=== PATIENT | male | born 1975 | race Caucasian/White ===

== ENCOUNTER 2018-03-27 13:42 | Emergency (ER) | payer SELFPAY ==
[2018-03-27] MEDS ORDERED: KETOROLAC 30 MG/ML INJ ONE (14:28)
--- NOTE | 2018-03-27 14:29 | RAD REPORT ---
EXAM DESCRIPTION: RAD - Forearm Right - 03/27/2018 2:17 pm CLINICAL HISTORY: PAIN COMPARISON: No comparisons FINDINGS: Soft tissue swelling is seen about the wrist. No fracture or dislocation present. Small chicas rdware plate is present proximal fourth metacarpal. No radiopaque foreign body evident.
--- NOTE | 2018-03-27 14:49 | EDPHYS ---
Physician Documentation [facility] Name: Panda Morelos Age: 43 yrs Sex: Male : 1975 Arrival Date: 03/27/2018 Time: 13:44 Bed 30 Private MD: None, None ED Physician Raphael George HPI: 03/27 14:07 This 43 yrs old Male presents to ER via Ambulatory with complaints of snw Shoulder Pain, Nausea. 14:07 The patient or guardian complains of pain, that is acute. right shoulder and right snw wrist. Context: The problem was sustained construction site, resulted from a direct blow, by a heavy object, repetitive motion, The patient reports no decreased range of motion. The patient reports no obvious deformity. Onset: The symptoms/episode began/occurred suddenly, yesterday. Modifying factors: the symptoms are alleviated by remaining still. Associated signs and symptoms: The patient has no apparent associated signs or symptoms. Severity of symptoms: At their worst the symptoms were moderate. Treatment prior to arrival includes: splinting the affected extremity. The patient has not experienced similar symptoms in the past. The patient has not recently seen a physician. Historical: - Allergies: 13:49 No Known Allergies; aj1 - Home Meds: 13:49 None [Active]; aj1 - PMHx: 13:49 None; aj1 - PSHx: 13:49 wrist surgery; aj1 - Immunization history:: Flu vaccine is up to date. - Social history:: Smoking status: Patient uses tobacco products, smokes one pack cigarettes per day. chewing tobacco. - Ebola Screening: : Patient denies travel to an Ebola-affected area in the 21 days before illness onset. ROS: 14:06 Constitutional: Negative for fever, chills, and weight loss, Eyes: Negative for injury, snw pain, redness, and discharge, ENT: Negative for injury, pain, and discharge, Neck: Negative for injury, pain, and swelling, Cardiovascular: Negative for chest pain, palpitations, and edema, Respiratory: Negative for shortness of breath, cough, wheezing, and pleuritic chest pain, Abdomen/GI: Negative for abdominal pain, nausea, vomiting, diarrhea, and constipation, Back: Negative for injury and pain, : Negative for injury, bleeding, discharge, and swelling, Skin: Negative for injury, rash, and discoloration, Neuro: Negative for headache, weakness, numbness, tingling, and seizure. 14:06 MS/extremity: Positive for injury or acute deformity, decreased range of motion, pain, of the right wrist and right shoulder. Exam: 14:05 Constitutional: This is a well developed, older appearance than stated age, male who snw is awake, alert, and in no acute distress. Head/Face: Normocephalic, atraumatic. Eyes: Pupils equal round and reactive to light, extra-ocular motions intact. Lids and lashes normal. Conjunctiva and sclera are non-icteric and not injected. Cornea within normal limits. Periorbital areas with no swelling, redness, or edema. ENT: Nares patent. No nasal discharge, no septal abnormalities noted. Tympanic membranes are normal and external auditory canals are clear. Oropharynx with no redness, swelling, or masses, exudates, or evidence of obstruction, uvula midline. Mucous membranes moist. Neck: Trachea midline, no thyromegaly or masses palpated, and no cervical lymphadenopathy. Supple, full range of motion without nuchal rigidity, or vertebral point tenderness. No Meningismus. Chest/axilla: Normal chest wall appearance and motion. Nontender with no deformity. No lesions are appreciated. Cardiovascular: Regular rate and rhythm with a normal S1 and S2. No gallops, murmurs, or rubs. Normal PMI, no JVD. No pulse deficits. Respiratory: Lungs have equal breath sounds bilaterally, clear to auscultation and percussion. No rales, rhonchi or wheezes noted. No increased work of breathing, no retractions or nasal flaring. Abdomen/GI: Soft, non-tender, with normal bowel sounds. No distension or tympany. No guarding or rebound. No evidence of tenderness throughout. Back: No spinal tenderness. No costovertebral tenderness. Full range of motion. Skin: Warm, dry with normal turgor. Normal color with no rashes, no lesions, and no evidence of cellulitis. Neuro: Awake and alert, GCS 15, oriented to person, place, time, and situation. Cranial nerves II-XII grossly intact. Motor strength 5/5 in all extremities. Sensory grossly intact. Cerebellar exam normal. Normal gait. Psych: Awake, alert, with orientation to person, place and time. Behavior, mood, and affect are within normal limits. 14:05 Musculoskeletal/extremity: Extremities: grossly normal except: noted in the right forearm: pain, ROM: no acute changes, Circulation is intact in all extremities. Sensation intact. Vital Signs: 13:49 BP 124 / 83; Pulse 92; Resp 18; Temp 97.3; Pulse Ox 100% on R/A; Weight 63.5 kg (R); aj1 Height 5 ft. 11 in. (180.34 cm) (R); Pain 10/10; 13:49 Body Mass Index 19.53 (63.50 kg, 180.34 cm) aj1 MDM: 13:55 Patient medically screened. snw 14:50 Data reviewed: vital signs, nurses notes. Data interpreted: Pulse oximetry: on room air snw is 100 %. Interpretation: normal. Counseling: I had a detailed discussion with the patient and/or guardian regarding: the historical points, exam findings, and any diagnostic results supporting the discharge/admit diagnosis, the presence of at least one elevated blood pressure reading (>120/80) during this emergency department visit, radiology results, the need for outpatient follow up, to return to the emergency department if symptoms worsen or persist or if there are any questions or concerns that arise at home. Special discussion: I have referred the patient to see his PCP for further evaluation of high blood pressure. Based on the history and exam findings, there is no indication for further emergent testing or inpatient evaluation. I discussed with the patient/guardian the need to see the orthopedic surgeon for further evaluation of the symptoms. I discussed with the patient/guardian the need to see the primary care provider for further evaluation of the symptoms. 03/27 13:54 Order name: Forearm Right XRAY; Complete Time: 14:47 snw Administered Medications: 14:25 Drug: TORadol 60 mg Route: IM; Site: left deltoid; iw Disposition: 15:48 Co-signature as Attending Physician, Raphael George MD I agree with the assessment and jessica plan of care. Disposition: 03/27/18 14:49 Discharged to Home. Impression: Sprain of unspecified part of right wrist and hand, Pain in right shoulder. - Condition is Stable. - Discharge Instructions: Musculoskeletal Pain, Shoulder Pain, Cryotherapy, [id number], Shoulder Range of Motion Exercises, Heat Therapy, Wrist Sprain. - Prescriptions for Diclofenac Sodium 75 mg Oral Tablet Sustained Release - take 1 tablet by ORAL route 2 times per day; 30 tablet. orphenadrine citrate 100 mg Oral Tablet Sustained Release - take 1 tablet by ORAL route 2 times per day As needed; 20 tablet. - Medication Reconciliation Form, Thank You Letter, Antibiotic Education, Prescription Opioid Use, Work release form form. - Follow up: Private Physician; When: 2 - 3 days; Reason: Recheck today's complaints, Continuance of care, Re-evaluation by your physician. Follow up: Bryan Anderson MD; When: 5 - 6 days; Reason: Recheck today's complaints, Continuance of care. - Notes: please continue to wear splint Signatures: Dispatcher [employer] EDDesiree Monroy RN RN aj1 Raphael George MD MD cha Therrien, Shelly, RESEARCH PROGRAM ASSISTANT-C RESEARCH PROGRAM ASSISTANT-Csnw Julieta Childers RN RN iw Corrections: (The following items were deleted from the chart) 15:12 14:49 03/27/2018 14:49 Discharged to Home. Impression: Sprain of unspecified part of iw right wrist and hand; Pain in right shoulder. Condition is Stable. Forms are Medication Reconciliation Form, Thank You Letter, Antibiotic Education, Prescription Opioid Use. Follow up: Private Physician; When: 2 - 3 days; Reason: Recheck today's complaints, Continuance of care, Re-evaluation by your physician. Follow up: Dr. Bryan Anderson; When: 5 - 6 days; Reason: Recheck today's complaints, Continuance of care. snw
--- NOTE | 2018-03-27 14:49 | ER ---
Nurse's Notes [facility] Name: Panda Morelos Age: 43 yrs Sex: Male : 1975 Arrival Date: 03/27/2018 Time: 13:44 Bed 30 Private MD: None, None Diagnosis: Sprain of unspecified part of right wrist and hand;Pain in right shoulder Presentation: 03/27 13:45 Presenting complaint: Patient states: "yesterday we were pulling down cabinets and I aj1 was pulling with a screw drills some screws out of the back. The drill went forward and pulled me forward and my wrist hit the particle board" Patient reports pain in right wrist that started yesterday and pain in the right shoulder that started today. Patient also reports nausea. Transition of care: patient was not received from another setting of care. Onset of symptoms was March 26, 2018. Risk Assessment: Do you want to hurt yourself or someone else? Patient reports no desire to harm self or others. Initial Sepsis Screen: Does the patient meet any 2 criteria? No. Patient's initial sepsis screen is negative. Does the patient have a suspected source of infection? No. Patient's initial sepsis screen is negative. Care prior to arrival: None. 13:45 Method Of Arrival: Ambulatory aj 13:45 Acuity: SABAS 4 aj1 Triage Assessment: 13:49 General: Appears uncomfortable, Behavior is agitated, anxious, restless. Pain: aj1 Complains of pain in right arm Pain currently is 10 out of 10 on a pain scale. Neuro: Level of Consciousness is awake, alert, obeys commands. Cardiovascular: Patient's skin is warm and dry. Respiratory: Airway is patent Respiratory effort is even, unlabored, Respiratory pattern is regular, symmetrical. GI: Reports nausea. Historical: - Allergies: 13:49 No Known Allergies; aj1 - Home Meds: 13:49 None [Active]; aj1 - PMHx: 13:49 None; aj1 - PSHx: 13:49 wrist surgery; aj1 - Immunization history:: Flu vaccine is up to date. - Social history:: Smoking status: Patient uses tobacco products, smokes one pack cigarettes per day. chewing tobacco. - Ebola Screening: : Patient denies travel to an Ebola-affected area in the 21 days before illness onset. Screenin:31 Abuse screen: Denies threats or abuse. Denies injuries from another. Nutritional iw screening: No deficits noted. Tuberculosis screening: No symptoms or risk factors identified. Fall Risk None identified. Assessment: 14:30 General: Appears in no apparent distress. Behavior is calm, cooperative. Pain: iw Complains of pain in right arm. Neuro: Level of Consciousness is awake, alert, obeys commands, Oriented to person, place, time, situation, Moves all extremities. Full function. Respiratory: Respiratory effort is even, unlabored, Respiratory pattern is regular, symmetrical. GI: Abdomen is flat, non-distended. Derm: Skin is intact, is healthy with good turgor. Musculoskeletal: Range of motion: intact in all extremities. Vital Signs: 13:49 BP 124 / 83; Pulse 92; Resp 18; Temp 97.3; Pulse Ox 100% on R/A; Weight 63.5 kg (R); aj1 Height 5 ft. 11 in. (180.34 cm) (R); Pain 10/10; 13:49 Body Mass Index 19.53 (63.50 kg, 180.34 cm) aj1 ED Course: 13:44 Patient arrived in ED. mr 13:45 None, None is Private Physician. mr 13:49 Triage completed. aj1 13:49 Arm band placed on Patient placed in an exam room. aj1 13:55 Sahra Fregoso FNP-C [facility]. snw 13:55 Raphael George MD is Attending Physician. snw 14:18 Forearm Right XRAY In Process Unspecified. EDMS 14:18 Julieta Childers, RN is Primary Nurse. iw 14:31 Patient has correct armband on for positive identification. iw 14:31 No provider procedures requiring assistance completed. iw 14:48 Bryan Anderson MD is Referral Physician. snw 15:00 Patient did not have IV access during this emergency room visit. iw Administered Medications: 14:25 Drug: TORadol 60 mg Route: IM; Site: left deltoid; iw Outcome: 14:49 Discharge ordered by . snw 15:10 Discharged to home ambulatory, with family. iw 15:10 Condition: good 15:10 Discharge instructions given to patient, family, Instructed on discharge instructions, follow up and referral plans. medication usage, Demonstrated understanding of instructions, follow-up care, medications, Prescriptions given X 2. 15:12 Patient left the ED. iw Signatures: Dispatcher [employer] EDDesiree Monroy RN RN aj1 Sahra Fregoso, GRAVEL SCREENER-C GRAVEL SCREENER-Csnw Rebecca Fernandez Irene, BEBETO TATE iw
== END 2018-03-27 15:12 | disposition home or self-care (01) ==
LOC: ER 13:42
DX: S63.91XA Sprain of unspecified part of right wrist and hand, initial encounter (principal); F17.210 Nicotine dependence, cigarettes, uncomplicated; W22.8XXA Striking against or struck by other objects, initial encounter; Y93.89 Activity, other specified; Y92.69 Other specified industrial and construction area as the place of occurrence of the external cause; Y99.8 Other external cause status
CPT/HCPCS: 96372; 99283